=== PATIENT | female | born 1965 | race African-American/Black ===

== ENCOUNTER 2016-10-22 05:40 | Day surgery (SDC) | payer BC ==
[2016-10-20 15:32] LABS: HEMATOCRIT 33.6 % (36.0-48.0); HEMOGLOBIN 10.1 g/dL (12.0-16.0)
[2016-10-20 16:15] LABS: CALCIUM, SERUM 8.5 MG/DL (8.5-10.4); CHLORIDE, SERUM 115 MMOL/L (96-112); CO2 (CARBON DIOXIDE) 20 MMOL/L (24-34); GFR AFRICAN AMERICAN 23 ML/MIN (>=60); GFR NON AFRICAN AMERICAN 20 ML/MIN (>=60); GLUCOSE, SERUM 133 MG/DL (60-99); SODIUM, SERUM 143 MMOL/L (135-148)
[2016-10-20 16:16] LABS: BUN (BLOOD UREA NITROGEN) 39 MG/DL (6-23); CREATININE 2.65 MG/DL (0.55-1.02); POTASSIUM, SERUM 5.6 MMOL/L (3.5-5.3)
[~2016-10-22 05:40] MED LIST: ADVIL PO; APRES50 PO; ASAB PO; BYSTOLIC10 MG PO; BYSTOLIC20 MG PO; CRESTOR20 MG PO; CYANO1000T PO; DEMA100 PO; DEMA20 PO; DIAM250B PO; DIAMSEQ PO; DUREZOL EYE OPH; EXFORGE PO; EXFORGE1 TA2 PO; EXFORGE1 TA3 PO; EYE DROPS; EYE OPH; FENESIN IR400 MG PO; FERRETTS325 MG PO; FERROUS SULF325 M1 PO; FLEXERIL5 MG PO; HUMULIN INSULIN PUMP SC; ILEVRO1.7 ML OPH; JANUVIA100 MG PO; MICARDIS80 PO; NAC 600 PO; PROAIR HFA INH; SODBICAR10 PO; SPIRO25 PO; VICTOZA18 MG/3 ML SC; VIGAMOX OPH; VITAMIN B-121000 MC1 SL; VITD PO; [UNRECOGNIZED DRUG - OTHER]
[2016-10-22 06:40] LABS: POTASSIUM, SERUM 4.7 MMOL/L (3.5-5.3)
== END 2016-10-22 09:33 | disposition home or self-care (01) ==
LOC: SDC 05:40
PROVIDERS: Ophthalmology
PROC: 08RJ3JZ Replacement of Right Lens with Synthetic Substitute, Percutaneous Approach (ICD-10-PCS; principal; 2016-10-22 07:45)
DX: H25.11 Age-related nuclear cataract, right eye (principal); E78.5 Hyperlipidemia, unspecified; G47.33 Obstructive sleep apnea (adult) (pediatric); E66.01 Morbid (severe) obesity due to excess calories; Z68.43 Body mass index [BMI] 50.0-59.9, adult; E11.22 Type 2 diabetes mellitus with diabetic chronic kidney disease; I12.9 Hypertensive chronic kidney disease with stage 1 through stage 4 chronic kidney disease, or unspecified chronic kidney disease; N18.9 Chronic kidney disease, unspecified; Z88.0 Allergy status to penicillin; Z88.8 Allergy status to other drugs, medicaments and biological substances; Z79.4 Long term (current) use of insulin; Z79.899 Other long term (current) drug therapy
CPT/HCPCS: 80048; 82947; 82962; 84132; 84703; 85014; 85018; 93005; J2405; J3010; J3370